=== PATIENT | male | born 1995 | race Caucasian/White ===

== ENCOUNTER 2020-09-17 21:37 | Emergency (ER) | payer MEDICAID ==
[~2020-09-17] VITALS: Ht 170.2 cm; Wt 77.1 kg
[2020-09-17 21:47] VITALS: BP 120/75
[2020-09-17 22:40] VITALS: BP 120/75
== END 2020-09-17 22:40 | disposition left against medical advice (07) ==
LOC: MED 21:37
DX: L03.115 Cellulitis of right lower limb (principal); F14.10 Cocaine abuse, uncomplicated
CPT/HCPCS: 99281